=== PATIENT | male | born 1950 | race Caucasian/White ===

== ENCOUNTER 2021-07-07 12:41 | Emergency (ER) | payer OTHER ==
--- OUTSIDE RECORDS SUMMARY | 2021-07-07 12:42 | XMS REPORT | Continuity of Care Document ---
:1950 Author Organization [facility] t Address [address] [place] [address] Care Team Providers Name Role Phone Asked, Pcp Primary Care Physician Unavailable Brian Attending Clinician [phone] David Ortiz MD Attending Clinician Telma STANTON Attending Clinician Problems This patient has no known problems. Allergies, Adverse Reactions, Alerts This patient has no known allergies or adverse reactions. Social History Social Habit Start Date Stop Date Quantity Comments Source Sex Ass[birth year] At [birth year] [facility] 00:00:00 00:00:00 Smoking Status Start Date Stop Date Source Unknown if ever smoked [facility] Medications This patient has no known medications. Procedures Procedure Date / Time Performed Performing Clinician [facility] e US VASCULAR SCREENING 2021-03-19 21:19:53 [facility] HEART SCAN PLUS CT HEART SCAN PLUS W 2021-03-19 20:17:13 [facility] PHYSICIAN ORDER Plan of Care Planned Activity Planned Date Details Comments Source Future Scheduled Test COVID-19 VACCINE (1) [facility] [code = COVID-19 VACCINE (1)] Future Scheduled Test Hepatitis C screening [facility] (procedure) [code = 372687990] Future Scheduled Test COLONOSCOPY SCREENING [facility] [code = COLONOSCOPY SCREENING] Future Scheduled Test SHINGLES VACCINES (#1) [facility] [code = SHINGLES VACCINES (#1)] Future Scheduled Test INFLUENZA VACCINE [code [facility] = INFLUENZA VACCINE] Encounters Start End Encounter Admission Attending Care Care Encounter Source Date/Time Date/Time Type Type Clinicians Facility Department ID 2021-06-20 2021-06-20 Outpatient Brian Darius Darius [id number] 00:00:00 00:00:00 Ad [id number] 2021-04-18 2021-04-18 Office LOIDA Ortiz [id number] 08:56:14 11:30:55 Visit Ramón Hernandez AMBULATOR 350.1.13.21 Y 0.2.7.2.686 [id number] 2021-03-19 2021-03-19 [facility], 1.2.840.1 [id number] Methodi 14:56:39 23:59:00 Encounter Andrea [id number] 3.430.2.7 Hospit a .3.781677 l .8 2021-03-19 2021-03-19 [facility], 1.2.840.1 [id number] Methodi 14:55:55 14:55:55 Encounter Andrea [id number] 3.430.2.7 Hospit a .3.911465 l .8 2021-03-19 2021-03-19 Travel 1.2.840.1 [id number] Methodi 00:00:00 00:00:[id number] 3.430.2.7 0.2.7.3.698 Ho spita .3.339326 084.8 l .8 2021-03-19 2021-03-19 Outpatient [facility] [id number] [address] [place] [address] 00:00:00 00:00:00 ANDREA [address] 2021-03-19 2021-03-19 Outpatient [facility] [id number] [address] [place] [address] 00:00:00 00:00:00 ANDREA [address] 2021-02-25 2021-02-25 Travel 1.2.840.1 [id number] Methodi 00:00:00 00:00:[address] 3.430.2.7 0.2.7.3.698 Ho spita .3.177293 084.8 l .8 2021-02-13 2021-02-13 Transcribe Telma 1.2.840.1 [id number] Methodi 00:00:00 00:00:00 Orders Andrea [id number] 3.430.2.7 Hospit a .3.942765 l .8 2019-07-13 2019-07-13 Office LOIDA Ortiz [id number] 13:49:11 16:45:49 Visit Morris AMBULATOR 350.1.13.21 Y 0.2.7.2.686 [id number] Results Test Description Test Time Test Comments Results Result Sourc e Comments Pv vascular 2021-02-22 Examination: US Methodis t screening heart 7 VASCULAR SCREENING H ospital scan plus (self 21:42:07 HEART SCAN PLUS pay) Clinical history: E78.5 Hyperlipidemia unspecified, e78.5 Impression:Vascular screening sonography was performed. Doppler arterial waveform analysis was performed. 1. There is no significant plaque within visualized portions of either common or internal carotid artery. 2. The abdominal aorta is normal caliber without significant plaque formation. 3. Bilateral ABIs were obtained:Right brachial pressure 143 mm, ankle pressure 172 mm, index 1.20; first toe pressure 159 mm, index 1.11Left brachial pressure 139 mm, index 159 mm, index 1.11; great toe pressure 128 mm, index 0.90Waveforms at the ankle are primarily biphasic. [id number] Interface, Radiology Results Incoming - 03/19/2021 4:45 PM CDT Examination : US VASCULAR SCREENING HEART SCAN PLUSClinical history: E78.5 Hyperlipidemia unspecified, e78.5Impression:Vasc ular screening sonography was performed. Doppler arterial waveform analysis was performed.1. There is no significant plaque within visualized portions of either common or internal carotid artery.2. The abdominal aorta is normal caliber without significant plaque formation.3. Bilateral ABIs were obtained:Right brachial pressure 143 mm, ankle pressure 172 mm, index 1.20; first toe pressure 159 mm, index 1.11Left brachial pressure 139 mm, index 159 mm, index 1.11; great toe pressure 128 mm, index 0.90Waveforms at the ankle are primarily biphasic.[id number] Ct heart scan 2021-02-22 EXAMINATION: CT Meth[facility] dist plus w physician 7 HEART SCAN PLUS W H ospital order (self pay) 20:22:23 PHYSICIAN ORDER CLINICAL HISTORY: E78.5 Hyperlipidemia unspecified, e78.5 COMPARISON: None. CT imaging was performed with iterative reconstruction techniques and/or automated exposure control to reduce radiation dose. IMPRESSION:Sequentia l 2.[address] cuts were obtained through the chest using ECG gating. Interactive image viewing and volumetric display and analysis were also performed. The CAC score was quantified using the Agatston scoring method. Agatston total coronary artery calcium score: 902Left Main (LM): 0Left Anterior Descending (LAD): 397Left Circumflex (LCx): 0Right Coronary Artery (RCA): 319Posterior Descending Artery (PDA): 0Diagonal: 123Ramus: 63 Agatston Calcium Score (total) Extent of Atherosclerosis0-Nor mal 1-10 - Minimal extent of oroogoznlhuwqtp55-76 0 - Mild extent of euypjdqbnzbcoyx698-2 00 - Moderate extent of atherosclerosis> 400 - Severe extent of atherosclerosis RECOMMENDATION:A score of 902 places the patient in the 70th percentile rank. That means 30% of the males at the ages from 71-75 have a higher calcium score. Intensive risk factor modification is indicated to prevent further progression (>0). Please contact your physician regarding these results. INCIDENTAL FINDINGS:The ascending thoracic aorta is aneurysmal at 4.4 cm in greatest diameter. However, this is incompletely evaluated on this exam. Consider additional imaging with chest CTA for further evaluation. [facility]-[id number] Interface, Radiology Results - 03/19/2021 3:25 PM CDT EXAMINATION : CT HEART SCAN PLUS W PHYSICIAN ORDERCLINICAL HISTORY: E78.5 Hyperlipidemia unspecified, e78.5COMPARISON: None.CT imaging was performed with iterative reconstruction techniques and/or automated exposure control to reduce radiation dose.IMPRESSION:Sequ ential 2.[address] cuts were obtained through the chest using ECG gating. Interactive image viewing and volumetric display and analysis were also performed. The CAC score was quantified using the Agatston scoring method.Agatston total coronary artery calcium score: 902Left Main (LM): 0Left Anterior Descending (LAD): 397Left Circumflex (LCx): 0Right Coronary Artery (RCA): 319Posterior Descending Artery (PDA): 0Diagonal: 123Ramus: 63Agatston Calcium Score (total) Extent of Atherosclerosis0-Nor mal 1-10 - Minimal extent of nfyaokgageqogcy17-75 0 - Mild extent of jevqravctwwtxna426-4 00 - Moderate extent of atherosclerosis> 400 - Severe extent of atherosclerosisRECOM MENDATION:A score of 902 places the patient in the 70th percentile rank. That means 30% of the males at the ages from 71-75 have a higher calcium score. Intensive risk factor modification is indicated to prevent further progression (>0). Please contact your physician regarding these results.INCIDENTAL FINDINGS:The ascending thoracic aorta is aneurysmal at 4.4 cm in greatest diameter. However, this is incompletely evaluated on this exam. Consider additional imaging with chest CTA for further evaluation.[id number]
[2021-07-07 13:07] LABS: Absolute Lymphocytes (CBC) 1.3 K/uL (0.7-4.9); Basophils % 0.2 % (0-1.3); Hematocrit 34.4 % (39.6-49.0); Lymphocytes % 20.6 % (15.3-44.8); MPV 6.8 fL (7.6-11.3); RBC Red Blood Cell Count 3.03 M/uL (4.33-5.43)
[2021-07-07 13:09] LABS: Protime INR 1.03
--- NOTE | 2021-07-07 13:13 | RAD REPORT ---
EXAM DESCRIPTION: CT - Ct Stroke Brain Wo Cont - 07/07/2021 1:04 pm CLINICAL HISTORY: NUMBNESS COMPARISON: No comparisons TECHNIQUE: All CT scans are performed using dose optimization technique as appropriate and may inclu de automated exposure control or mA/KV adjustment according to patient size. FINDINGS: No intracranial hemorrhage, hydrocephalus or extra-axial fluid collection.No areas of brai n edema or evidence of midline shift. Mild chronic small vessel ischemic changes. Cerebral atrophy. The paranasal sinuses and mastoids are clear. The calvarium is intact. IMPRESSION: No acute intracranial abnormality.
[2021-07-07 13:29] LABS: Potassium 4.1 mmol/L (3.5-5.1)
[2021-07-07] MEDS ORDERED: NA CHLORIDE 0.9% 1,000 ML ONE (15:14)
--- NOTE | 2021-07-07 16:01 | EDPHYS ---
Physician Documentation [facility] Name: Herminio Crowley Age: 70 yrs Sex: Male : 1950 Arrival Date: 07/07/2021 Time: 12:44 Bed 3 Private MD: ED Physician Arpit Medina HPI: 07/07 16:05 This 70 yrs old Male presents to ER via EMS with complaints of Numbness. tw4 16:05 The patient's problem is reported as paresthesias, in left side of face, perioral left tw4 cheek, left fingers. Onset: The symptoms/episode began/occurred just prior to arrival, today. Duration: This was a single incident. Context: occurred. Severity of symptoms: At their worst the symptoms were moderate in the emergency department the symptoms are unchanged. The patient has not experienced similar symptoms in the past. 16:09 70-year-old male comes emergency department after calling EMS because he had perioral tw4 numbness, left cheek numbness left hand numbness. When EMS arrived they found patient to be hypotensive blood pressure of 70 over 40s and his heart rate to be less than 40. Patient had a complaints of chest pain patient no complaints of weakness. Patient states prior to calling EMS he was running today and then he went into the hot tub for undetermined amount of time. EMS gave the patient atropine and his heart rate improved. They also gave the patient IV fluids and blood pressure became normotensive. Patient states that his symptoms totally resolved by the time he arrived to the emergency department. And he had no complaints.. Historical: - Allergies: 12:49 No Known Allergies; jd3 - Home Meds: 12:49 Tegretol Oral [Active]; jd3 - PMHx: 12:49 Seizure; jd3 - PSHx: 12:49 left shoulder; jd3 - Immunization history:: Adult Immunizations up to date, Client reports receiving the 2nd dose of the Covid vaccine, Date received: January 22, 2021 Client reports receiving the 1st dose of the Covid vaccine, December 25, 2020. - Social history:: Smoking status: Patient denies any tobacco usage or history of. ROS: 16:05 Constitutional: Negative for fever, chills, and weight loss, Eyes: Negative for injury, tw4 pain, redness, and discharge, Cardiovascular: Negative for chest pain, palpitations, and edema, Respiratory: Negative for shortness of breath, cough, wheezing, and pleuritic chest pain, Abdomen/GI: Negative for abdominal pain, nausea, vomiting, diarrhea, and constipation, Back: Negative for injury and pain, MS/Extremity: Negative for injury and deformity, Skin: Negative for injury, rash, and discoloration. 16:05 Neuro: Positive for numbness, tingling. Exam: 16:05 Radiologist reports: no acute changes tw4 16:05 Constitutional: This is a well developed, well nourished patient who is awake, alert, and in no acute distress. Head/Face: Normocephalic, atraumatic. Chest/axilla: Normal chest wall appearance and motion. Nontender with no deformity. No lesions are appreciated. Cardiovascular: Regular rate and rhythm with a normal S1 and S2. No gallops, murmurs, or rubs. Normal PMI, no JVD. No pulse deficits. Respiratory: Lungs have equal breath sounds bilaterally, clear to auscultation and percussion. No rales, rhonchi or wheezes noted. No increased work of breathing, no retractions or nasal flaring. Abdomen/GI: Soft, non-tender, with normal bowel sounds. No distension or tympany. No guarding or rebound. No evidence of tenderness throughout. Back: No spinal tenderness. No costovertebral tenderness. Full range of motion. Skin: Warm, dry with normal turgor. Normal color with no rashes, no lesions, and no evidence of cellulitis. MS/ Extremity: Pulses equal, no cyanosis. Neurovascular intact. Full, normal range of motion. Neuro: Awake and alert, GCS 15, oriented to person, place, time, and situation. Cranial nerves II-XII grossly intact. Motor strength 5/5 in all extremities. Sensory grossly intact. Cerebellar exam normal. Normal gait. Vital Signs: 12:50 BP 169 / 73; Pulse 51; Resp 15 S; Temp 97.6(TE); Pulse Ox 95% on R/A; Weight 69.85 kg jd3 (R); Height 6 ft. 0 in. (182.88 cm) (R); Pain 0/10; 13:12 BP 156 / 77; Pulse 49; Resp 15; Pulse Ox 100% on R/A; hb 14:41 BP 164 / 74; Pulse 47; Resp 16 S; Pulse Ox 100% on R/A; jd3 15:43 BP 177 / 76; Pulse 58; Resp 14; Pulse Ox 100% on R/A; hb 12:50 Body Mass Index 20.89 (69.85 kg, 182.88 cm) jd3 NIH Stroke Scale Scores: 12:52 NIHSS Score: 0 jd3 16:05 NIHSS Score: 0 tw4 MDM: 12:47 Patient medically screened. tw4 16:09 Data reviewed: vital signs, nurses notes. Data interpreted: Pulse oximetry: tw4 Interpretation: normal. Counseling: I had a detailed discussion with the patient and/or guardian regarding: the historical points, exam findings, and any diagnostic results supporting the discharge/admit diagnosis. Special discussion: I discussed with the patient/guardian in detail that at this point there is no indication for admission to the hospital. It is understood, however, that if the symptoms persist or worsen the patient needs to return immediately for re-evaluation. 07/07 12:48 Order name: Basic Metabolic Panel; Complete Time: 13:54 tw4 07/07 13:55 Interpretation: Normal except: GFR 74; GLUC 114. tw07/07 12:48 Order name: CBC with Diff 07/07 13:54 Interpretation: Normal except: RBC 3.03; HGB 12.1; HCT 34.4; MCV 113.6; MCH 40.1; MPV tw4 6.8. 07/07 12:48 Order name: Protime (+inr); Complete Time: 13:54 tw4 07/07 13:54 Interpretation: Within normal limits: PT 11.8; INR <p>1.03</p>. tw4 07/07 12:48 Order name: Ptt, Activated; Complete Time: 13:54 tw4 07/07 13:54 Interpretation: Normal except: PTT 22.8. tw07/07 12:48 Order name: CT Stroke Brain w/o Contrast; Complete Time: 13:54 tw4 07/07 13:54 Interpretation: No acute disease except. 07/07 12:48 Order name: EKG; Complete Time: 12:48 tw4 07/07 12:48 Order name: Accucheck; Complete Time: 12:53 tw4 07/07 12:48 Order name: Cardiac monitoring; Complete Time: 12:53 4 07/07 12:48 Order name: EKG - Nurse/Tech; Complete Time: 12:53 07/07 12:48 Order name: IV Saline Lock; Complete Time: 12:53 07/07 12:48 Order name: Labs collected and sent; Complete Time: 12:53 07/07 12:48 Order name: NPO; Complete Time: 12:53 07/07 12:48 Order name: O2 Per Protocol; Complete Time: 12:53 07/07 12:48 Order name: O2 Sat Monitoring; Complete Time: 12:53 07/07 12:48 Order name: Stroke Swallow Screen; Complete Time: 12:53 tw4 Administered Medications: 14:51 Drug: NS 0.9% 1000 ml Route: IV; Rate: 1 bolus; Site: right antecubital; hb 15:50 Follow up: Response: No adverse reaction; IV Status: Completed infusion; IV Intake: jd3 1000ml Disposition Summary: 07/07/21 16:01 Discharge Ordered Location: Home tw4 Problem: new tw4 Symptoms: have improved tw4 Condition: Stable tw4 Diagnosis - Hypotension, unspecified tw4 - Heat exhaustion, unspecified tw4 Followup: tw4 - With: Private Physician - When: Upon discharge from the Emergency Department - Reason: Recheck today's complaints, Continuance of care, Re-evaluation by your physician Discharge Instructions: - Discharge Summary Sheet tw4 - Hypotension tw4 - Near-Syncope tw4 Forms: - Medication Reconciliation Form tw4 - Thank You Letter tw4 - Antibiotic Education tw4 - Prescription Opioid Use tw4 NIH Stroke Scale - NIH Stroke Score Date: 07/07/2021 Time: 12:52 Total Score = 0 1a. Level of Consciousness (LOC) - 0(Alert) 1b. Level of Consciousness (LOC) (Month \T\ Age) - 0(Both) 1c. LOC Commands (Open \T\ Closes Eyes/Digital Ad Trafficker) - 0(Both) 2. Best Gaze (Lateral Gaze Paresis) - 0(Normal) 3. Visual Field Loss - 0(No visual loss) 4. Facial Palsy - 0(Normal) 5a. Left Arm: Motor (10-second hold) - 0(No drift) 5b. Right Arm: Motor (10-second hold) - 0(No drift) 6a. Left Leg: Motor (5-second hold - always test supine) - 0(No drift) 6b. Right Leg: Motor (5-second hold - always test supine) - 0(No drift) 7. Limb Ataxia (finger/nose \T\ heel/soler - test with eyes open) - 0(Absent) 8. Sensory Loss (pinprick arms/legs/face) - 0(Normal) 9. Best Language: Aphasia (description/naming/reading) - 0(No aphasia) 10. Dysarthria (speech clarity - read or repeat words) - 0(Normal) 11. Extinction and Inattention (visual/tactile/auditory/spatial/personal) - 0(No abnormality) Initials: kellie NIH Stroke Scale - NIH Stroke Score Date: 07/07/2021 Time: 16:05 Total Score = 0 1a. Level of Consciousness (LOC) - 0(Alert) 1b. Level of Consciousness (LOC) (Month \T\ Age) - 0(Both) 1c. LOC Commands (Open \T\ Closes Eyes/Digital Ad Trafficker) - 0(Both) 2. Best Gaze (Lateral Gaze Paresis) - 0(Normal) 3. Visual Field Loss - 0(No visual loss) 4. Facial Palsy - 0(Normal) 5a. Left Arm: Motor (10-second hold) - 0(No drift) 5b. Right Arm: Motor (10-second hold) - 0(No drift) 6a. Left Leg: Motor (5-second hold - always test supine) - 0(No drift) 6b. Right Leg: Motor (5-second hold - always test supine) - 0(No drift) 7. Limb Ataxia (finger/nose \T\ heel/soler - test with eyes open) - 0(Absent) 8. Sensory Loss (pinprick arms/legs/face) - 0(Normal) 9. Best Language: Aphasia (description/naming/reading) - 0(No aphasia) 10. Dysarthria (speech clarity - read or repeat words) - 0(Normal) 11. Extinction and Inattention (visual/tactile/auditory/spatial/personal) - 0(No abnormality) Initials: tw4 Signatures: Dispatcher [employer] EDSerena Sandoval RN RN hb Davies, Jonathon, RN RN jd3 Wadley, Terrence, MD MD tw4 Corrections: (The following items were deleted from the chart) 13:55 13:54 Normal except: GFR 74. tw4 tw4
--- NOTE | 2021-07-07 16:01 | ER ---
Nurse's Notes [facility] Name: Herminio Crowley Age: 70 yrs Sex: Male : 1950 Arrival Date: 07/07/2021 Time: 12:44 Bed 3 Private MD: Diagnosis: Hypotension, unspecified;Heat exhaustion, unspecified Presentation: 07/07 12:45 Chief complaint: EMS states: "pt reported that he went for a run this am then got in jd3 the hot tub. he reported that at 1140 he started to have numbness on his left side of his lips that spread to his face. on our arrival his heart rate was at 32 bpm in sinus bradycardia. we started an 18 G IV to the right AC and gave 1000 ml of NS and 0.5 of Atropine. the pt started to reported feeling better and heart rate came up to 50 bpm which the pt stated was his normal. symptoms resolved in route to the hospital.". Coronavirus screen: At this time, the client does not indicate any symptoms associated with coronavirus-19. Ebola Screen: Patient negative for fever greater than or equal to 101.5 degrees Fahrenheit, and additional compatible Ebola Virus Disease symptoms. Initial Sepsis Screen: Does the patient meet any 2 criteria? No. Patient's initial sepsis screen is negative. Does the patient have a suspected source of infection? No. Patient's initial sepsis screen is negative. Risk Assessment: Do you want to hurt yourself or someone else? Patient reports no desire to harm self or others. Onset of symptoms was July 07, 2021. 12:45 Method Of Arrival: EMS: [facility] jd3 12:45 Acuity: VIANNEY 3 jd3 Historical: - Allergies: 12:49 No Known Allergies; jd3 - Home Meds: 12:49 Tegretol Oral [Active]; jd3 - PMHx: 12:49 Seizure; jd3 - PSHx: 12:49 left shoulder; jd3 - Immunization history:: Adult Immunizations up to date, Client reports receiving the 2nd dose of the Covid vaccine, Date received: January 22, 2021 Client reports receiving the 1st dose of the Covid vaccine, December 25, 2020. - Social history:: Smoking status: Patient denies any tobacco usage or history of. Screenin:52 Abuse screen: Denies threats or abuse. Nutritional screening: No deficits noted. jd3 Tuberculosis screening: No symptoms or risk factors identified. VAN Screening: Arm Drift: Patient shows no arm weakness. Patient is VAN negative. The patient has not been NPO before screening. The patient is currently on the following diet: regular The patient is alert, able to follow commands. The patient does not exhibit slurred or garbled speech The patient is not exhibiting difficulty speaking. The patient does not exhibit difficulty understanding words. The patient is able to swallow own secretions with no drooling or need for suction. Patient tolerated one teaspoon of water. No drooling, immediate coughing, gurgling, or clearing of the throat was noted. The patient tolerated 90mL of water. No drooling, immediate coughing, gurgling, or clearing of the throat was noted. The patient passed the bedside swallow screening. Oral medications may be given as ordered. Contact Physician for further diet orders. Provider notified of bedside swallow screening results: Arpit Medina MD. Fall Risk Ambulatory Aid- None/Bed Rest/Nurse Assist (0 pts). Gait- Normal/Bed Rest/Wheelchair (0 pts) Mental Status- Oriented to own ability (0 pts). Total Puckett Fall Scale indicates No Risk (0-24 pts). Assessment: 12:51 General: Appears in no apparent distress. comfortable, Behavior is calm, cooperative, jd3 appropriate for age. Pain: Denies pain. Neuro: Level of Consciousness is awake, alert, obeys commands, Oriented to person, place, time, situation, Reports symptoms resolved. left sided lip numbness prior to arrival. Denies weakness blurred vision dizziness, paresthesias numbness headache photophobia. Cardiovascular: Denies chest pain, Capillary refill < 3 seconds Patient's skin is warm and dry. Rhythm is sinus bradycardia. Respiratory: Airway is patent Respiratory effort is even, unlabored, Respiratory pattern is regular, symmetrical, Denies cough, shortness of breath. GI: No signs and/or symptoms were reported involving the gastrointestinal system. : No signs and/or symptoms were reported regarding the genitourinary system. EENT: No signs and/or symptoms were reported regarding the EENT system. Derm: Skin is intact, Skin is dry, Skin is normal, Skin temperature is warm. Musculoskeletal: Circulation, motion, and sensation intact. Range of motion: intact in all extremities. 13:33 Reassessment: Patient appears in no apparent distress at this time. Patient and/or hb family updated on plan of care and expected duration. Pain level reassessed. Patient is alert, oriented x 3, equal unlabored respirations, skin warm/dry/pink. 14:41 Reassessment: Patient appears in no apparent distress at this time. No changes from jd3 previously documented assessment. Patient and/or family updated on plan of care and expected duration. Pain level reassessed. Patient is alert, oriented x 3, equal unlabored respirations, skin warm/dry/pink. Patient denies pain at this time. Vital Signs: 12:50 BP 169 / 73; Pulse 51; Resp 15 S; Temp 97.6(TE); Pulse Ox 95% on R/A; Weight 69.85 kg jd3 (R); Height 6 ft. 0 in. (182.88 cm) (R); Pain 0/10; 13:12 BP 156 / 77; Pulse 49; Resp 15; Pulse Ox 100% on R/A; hb 14:41 BP 164 / 74; Pulse 47; Resp 16 S; Pulse Ox 100% on R/A; jd3 15:43 BP 177 / 76; Pulse 58; Resp 14; Pulse Ox 100% on R/A; hb 12:50 Body Mass Index 20.89 (69.85 kg, 182.88 cm) jd3 NIH Stroke Scale Scores: 12:52 NIHSS Score: 0 jd3 16:05 NIHSS Score: 0 tw4 ED Course: 12:44 Patient arrived in ED. jd3 12:44 Cipriano Burk RN is Primary Nurse. jd3 12:47 Arpit Medina MD is Attending Physician. tw4 12:49 Triage completed. jd3 12:50 Arm band placed on. EKG completed in triage. Results shown to MD. jd3 12:53 Patient has correct armband on for positive identification. Placed in gown. Bed in low jd3 position. Call light in reach. Side rails up X2. quality assurance monitor final on. Pulse ox on. NIBP on. 13:03 CT Stroke Brain w/o Contrast In Process Unspecified. EDMS 15:00 Maintain EMS IV. Dressing intact. Good blood return noted. Site clean \\T\\ dry. Gauge \\T\\ stanislaw 3 site: 18 G right AC. 16:15 No provider procedures requiring assistance completed. IV discontinued, intact, jd3 bleeding controlled, No redness/swelling at site. Pressure dressing applied. Administered Medications: 14:51 Drug: NS 0.9% 1000 ml Route: IV; Rate: 1 bolus; Site: right antecubital; hb 15:50 Follow up: Response: No adverse reaction; IV Status: Completed infusion; IV Intake: jd3 1000ml Intake: 15:50 IV: 1000ml; Total: 1000ml. jd3 Outcome: 16:01 Discharge ordered by . tw4 16:15 Discharged to home ambulatory, with family. jd3 16:15 Condition: stable 16:15 Discharge instructions given to patient, Instructed on discharge instructions, follow up and referral plans. Demonstrated understanding of instructions, follow-up care. 16:22 Patient left the ED. NIH Stroke Scale - NIH Stroke Score Date: 07/07/2021 Time: 12:52 Total Score = 0 1a. Level of Consciousness (LOC) - 0(Alert) 1b. Level of Consciousness (LOC) (Month \\T\\ Age) - 0(Both) 1c. LOC Commands (Open \\T\\ Closes Eyes/Strategic Partner Development Manager) - 0(Both) 2. Best Gaze (Lateral Gaze Paresis) - 0(Normal) 3. Visual Field Loss - 0(No visual loss) 4. Facial Palsy - 0(Normal) 5a. Left Arm: Motor (10-second hold) - 0(No drift) 5b. Right Arm: Motor (10-second hold) - 0(No drift) 6a. Left Leg: Motor (5-second hold - always test supine) - 0(No drift) 6b. Right Leg: Motor (5-second hold - always test supine) - 0(No drift) 7. Limb Ataxia (finger/nose \\T\\ heel/soler - test with eyes open) - 0(Absent) 8. Sensory Loss (pinprick arms/legs/face) - 0(Normal) 9. Best Language: Aphasia (description/naming/reading) - 0(No aphasia) 10. Dysarthria (speech clarity - read or repeat words) - 0(Normal) 11. Extinction and Inattention (visual/tactile/auditory/spatial/personal) - 0(No abnormality) Initials: jd3 NIH Stroke Scale - NIH Stroke Score Date: 07/07/2021 Time: 16:05 Total Score = 0 1a. Level of Consciousness (LOC) - 0(Alert) 1b. Level of Consciousness (LOC) (Month \\T\\ Age) - 0(Both) 1c. LOC Commands (Open \\T\\ Closes Eyes/Strategic Partner Development Manager) - 0(Both) 2. Best Gaze (Lateral Gaze Paresis) - 0(Normal) 3. Visual Field Loss - 0(No visual loss) 4. Facial Palsy - 0(Normal) 5a. Left Arm: Motor (10-second hold) - 0(No drift) 5b. Right Arm: Motor (10-second hold) - 0(No drift) 6a. Left Leg: Motor (5-second hold - always test supine) - 0(No drift) 6b. Right Leg: Motor (5-second hold - always test supine) - 0(No drift) 7. Limb Ataxia (finger/nose \\T\\ heel/soler - test with eyes open) - 0(Absent) 8. Sensory Loss (pinprick arms/legs/face) - 0(Normal) 9. Best Language: Aphasia (description/naming/reading) - 0(No aphasia) 10. Dysarthria (speech clarity - read or repeat words) - 0(Normal) 11. Extinction and Inattention (visual/tactile/auditory/spatial/personal) - 0(No abnormality) Initials: tw4 Signatures: Dispatcher [employer] EDAnn Wall RN Serena Baron RN Cipriano Chi RN RN jd3 Wadley, Terrence, MD MD tw4 Corrections: (The following items were deleted from the chart) 16:31 15:00 Missed attempt(s): 18 gauge in right antecubital area. Bleeding jd3 controlled, band aid applied, catheter tip intact. jd3
[2021-07-07 16:27] VITALS: TEMP 97.6
[2021-07-07 16:28] VITALS: O2SAT 100
[2021-07-07 16:31] VITALS: BP 177/76
[2021-07-07 16:38] LABS: Blood Morphology Comment NOTED (NOT SEEN); Macrocytosis SLIGHT; Platelet Estimate ADEQ; White Blood Cell Scan OK (OK)
== END 2021-07-07 16:22 | disposition home or self-care (01) ==
LOC: ER 12:41
DX: T67.5XXA Heat exhaustion, unspecified, initial encounter (principal); G40.909 Epilepsy, unspecified, not intractable, without status epilepticus
CPT/HCPCS: 93005; 85025; 80048; 36415; 85610; 85730; 70450; 96360; 99284; J7030

== ENCOUNTER 2021-07-15 04:17 | Emergency (ER) | payer OTHER ==
--- OUTSIDE RECORDS SUMMARY | 2021-07-15 04:20 | XMS REPORT | Continuity of Care Document ---
:1950 Author Organization [facility] t Address [address] [place] [address] Care Team Providers Name Role Phone Asked, Pcp Primary Care Physician Unavailable Brian Attending Clinician [phone] David Ortiz MD Attending Clinician Telma STANTON Attending Clinician Problems This patient has no known problems. Allergies, Adverse Reactions, Alerts This patient has no known allergies or adverse reactions. Social History Social Habit Start Date Stop Date Quantity Comments Source Sex Assigned At [birth year] [facility] 00:00:00 00:00:00 Smoking Status Start Date Stop Date Source Unknown if ever smoked [facility] Medications This patient has no known medications. Procedures Procedure Date / Time Performed Performing Clinician [facility] e US VASCULAR SCREENING 2021-03-19 21:19:53 [facility] HEART SCAN PLUS CT HEART SCAN PLUS W 2021-03-19 20:17:13 [facility] PHYSICIAN ORDER Plan of Care Planned Activity Planned Date Details Comments Source Future Scheduled Test COVID-19 VACCINE (1) [facility] [code = COVID-19 VACCINE (1)] Future Scheduled Test Hepatitis C screening [facility] (procedure) [code = 444776930] Future Scheduled Test COLONOSCOPY SCREENING [facility] [code = COLONOSCOPY SCREENING] Future Scheduled Test SHINGLES VACCINES (#1) [facility] [code = SHINGLES VACCINES (#1)] Future Scheduled Test INFLUENZA VACCINE [code [facility] = INFLUENZA VACCINE] Future Scheduled Test COVID-19 VACCINE (1) [facility] [code = COVID-19 VACCINE (1)] Future Scheduled Test Hepatitis C screening [facility] (procedure) [code = 452910353] Future Scheduled Test COLONOSCOPY SCREENING [facility] [code = COLONOSCOPY SCREENING] Future Scheduled Test SHINGLES VACCINES (#1) [facility] [code = SHINGLES VACCINES (#1)] Future Scheduled Test INFLUENZA VACCINE [code [facility] = INFLUENZA VACCINE] Encounters Start End Encounter Admission Attending Care Care Encounter Source Date/Time Date/Time Type Type Clinicians Facility Department ID 2021-06-20 2021-06-20 Outpatient Brian Darius [facility] [id number] 00:00:00 00:00:00 Ad [id number] 2021-04-18 2021-04-18 Office LOIDA Ortiz [id number] 08:56:14 11:30:55 Visit Ramón Hernandez AMBULATOR 350.1.13.21 Y 0.2.7.2.686 [id number] 2021-03-19 2021-03-19 [place] [address].2.840.1 [id number] Methodi 14:56:39 23:59:00 Encounter Andrea 40000.1.[address] 3.430.2.7 Hospit a .3.044690 l .8 2021-03-19 2021-03-19 [place] [address].2.840.1 [id number] Methodi 14:56:39 23:59:00 Encounter Andrea [address]405.1.[address] 3.430.2.7 Hospit a .3.948272 l .8 2021-03-19 2021-03-19 [place] [address].2.840.1 [id number] Methodi 14:55:55 14:55:55 Encounter Andrea 47948.1.[address] 3.430.2.7 Hospit a .3.637392 l .8 2021-03-19 2021-03-[address]840[address]1 [id number] Methodi 14:55:55 14:55:55 Encounter Andrea [address]17.1.[address] 3.430.2.7 Hospit a .3.686062 l .8 2021-03-19 2021-03-19 Travel 1.2.840.1 [id number] [id number] Methodi 00:00:00 00:00:[address] 3.430.2.7 0.2.7.3.698 Ho spita .3.786168 084.8 l .8 2021-03-19 2021-03-19 Travel 1.2.840.1 1.2.771.645 [id number] Methodi 00:00:00 00:00:[address] 3.430.2.7 0.2.7.3.698 Ho spita .3.145891 084.8 l .8 2021-02-25 2021-02-25 Travel 1.2.840.1 1.2.301.567 [id number] [id number] Methodi 00:00:00 00:00:[address] 3.430.2.7 0.2.7.3.698 Ho spita .3.076612 084.8 l .8 2021-02-25 2021-02-25 Travel 1.2.840.1 1.2.575.045 [id number] Methodi 00:00:00 00:00:[address] 3.430.2.7 0.2.7.3.698 Ho spita .3.993735 084.8 l .8 2021-02-13 2021-02-13 Transcribe Telma, 1.2.840.1 [id number] Methodi 00:00:00 00:00:00 Orders Andrea [address]16.1.[address] 3.430.2.7 Hospit a .3.508495 l .8 2021-02-13 2021-02-13 Transcribe Telma, 1.2.840.1 [id number] Methodi 00:00:00 00:00:00 Orders Andrea [address]286.1.[address] 3.430.2.7 [facility] a 3.865241 l .8 2019-07-13 2019-07-13 Office LOIDA Ortiz [id number] [id number] 13:49:11 16:45:49 Visit Ramón Hernandez AMBULATOR 350.1.13.21 Y 0.2.7.2.686 [id number] Results Test Description Test Time Test Comments Results Result Sourc e Comments vascular 2021-02-22 Examination: US Methodis t screening [...] 0.90Waveforms at the ankle are primarily biphasic. [id number] Interface, Radiology Results - 03/19/2021 4:45 PM CDT Examination : [...] index 0.90Waveforms at the ankle are primarily biphasic.[id number] Pv vascular 2021-02-22 Examination: US Methodis t [...] 0.90Waveforms at the ankle are primarily biphasic. [facility]-[id number] Interface, Radiology Results 03/19/2021 4:45 PM CDT Examination : US [...] index 0.90Waveforms at the ankle are primarily biphasic.[facility]-[id number] Ct heart scan 2021-02-22 EXAMINATION: CT [...] Atherosclerosis0-Nor mal 1-10 - Minimal extent of rifcoehsgosngkc56-25 0 - Mild extent of pmpdznqctatnwyu632-6 00 - Moderate extent of atherosclerosis> 400 [...] imaging with chest CTA for further evaluation. [facility]-[id number] Interface, Radiology Results Incoming - 03/19/2021 3:25 PM CDT EXAMINATION : [...] (RCA): 319Posterior Descending Artery (PDA): 0Diagonal: 123Ramus: 63[facility] (total) Extent of Atherosclerosis0-Nor mal 1-10 - Minimal extent of dhoegcxacacdxow16-84 0 - Mild extent of reiysennnftymnj823-2 00 - Moderate extent of atherosclerosis> 400 [...] additional imaging with chest CTA for further evaluation.[facility]-[id number] Ct heart scan 2021-02-22 EXAMINATION: CT Metho [...] Atherosclerosis0-Nor mal 1-10 - Minimal extent of kyfeixxoiljeslm25-41 0 - Mild extent of bsbatvhlnchnwao365-3 00 - Moderate extent of atherosclerosis> 400 [...] imaging with chest CTA for further evaluation. [facility]-[id number] Interface, Radiology Results - 03/19/2021 3:25 PM [...] Atherosclerosis0-Nor mal 1-10 - Minimal extent of dpmmzdbepqnkpqo19-90 0 - Mild extent of dqczxttzumikjql080-9 00 - Moderate extent of atherosclerosis> 400 [...] additional imaging with chest CTA for further evaluation.[facility]-MXL0 [id number]
[2021-07-15 05:17] LABS: Absolute Lymphocytes (CBC) 1.2 K/uL (0.7-4.9); Basophils % 0.3 % (0-1.3); Hematocrit 36.3 % (39.6-49.0); Lymphocytes % 21.8 % (15.3-44.8); RBC Red Blood Cell Count 3.23 M/uL (4.33-5.43)
[2021-07-15 05:25] LABS: Protime INR 0.98
[2021-07-15 05:40] LABS: ALT/SGPT 31 U/L (12-78); AST/SGOT 25 U/L (15-37); Albumin 4.1 g/dL (3.4-5.0); Alkaline Phosphatase 68 U/L (45-117); BUN Blood Urea Nitrogen 11 mg/dL (7-18); Bicarbonate 29 mmol/L (21-32); Bilirubin Direct 0.2 mg/dL (0-0.2); Bilirubin Total 0.7 mg/dL (0.2-1.0); Glucose Level 120 mg/dL (74-106); Magnesium 2.2 mg/dL (1.8-2.4); NT PRO-BNP 168 pg/mL (<125); Protein, Total 6.9 g/dL (6.4-8.2); Sodium Level 134 mmol/L (136-145); Troponin (Emerg Dept Use Only) < 0.02 ng/mL (0.0-0.045)
[2021-07-15 06:03] LABS: White Blood Cell Scan OK (OK)
[2021-07-15 06:04] LABS: Blood Morphology Comment NOTED (NOT SEEN); Macrocytosis SLIGHT; Platelet Estimate ADEQ
--- NOTE | 2021-07-15 07:14 | RAD REPORT ---
EXAM DESCRIPTION: RAD - Chest Single View - 07/15/2021 5:16 am CLINICAL HISTORY: high BP COMPARISON: CHEST PA AND LAT 2 VIEW dated 01/08/2015 FINDINGS: No evidence of edema or pneumonia. Cardiomegaly.No acute osseous abnormality. No significa nt pleural effusions or pneumothorax. IMPRESSION: No acute cardiopulmonary disease.
--- NOTE | 2021-07-15 07:56 | RAD REPORT ---
EXAM DESCRIPTION: MRI - Brain Wo Cont - 07/15/2021 7:49 am CLINICAL HISTORY: Left-sided numbness and weakness COMPARISON: Same-day head CT TECHNIQUE: Sagittal T1-weighted images were obtained along with PD/heavily T2-weighted and T2-FLAIR images. Axial DWI and ADC mapping sequences were also obtained along with coronal heavily T2-weighted images were obtained. FINDINGS: No intracranial hemorrhage, mass or acute infarction. There is no edema or shift of midlin e structures. No extra-axial fluid collections. Moderate T2/FLAIR hyperintense foci within the centru m semiovale and pierre radiata consistent with chronic small vessel ischemic changes. Signal voids ar e seen as a normal finding in the major intracranial vessels. Mastoid air cells and paranasal sinuses are clear. IMPRESSION: No acute intracranial abnormality. Specifically, no evidence of acute infarct. Moderate chronic small vessel ischemic changes.
--- NOTE | 2021-07-15 08:33 | EDPHYS ---
Physician Documentation [facility] Name: Herminio Crowley Age: 70 yrs Sex: Male : 1950 Arrival Date: 07/15/2021 Time: 04:19 Bed 14 Private MD: ED Physician Escobar Salgado HPI: 07/15 08:28 This 70 yrs old Male presents to ER via Ambulatory with complaints of High jr8 Blood Pressure, Left Side Tingling. 08:28 Onset: The symptoms/episode began/occurred gradually, 1 week(s) ago. Associated signs jr8 and symptoms: The patient has no apparent associated signs or symptoms. The patient has not experienced similar symptoms in the past. The patient has been recently seen by a physician:. 08:29 This is a 70-year-old male that presented to the emergency room for continued jr8 left-sided tingling that started about 1 week ago. Was seen here on 07 July and had blood work completed along with CT of the head. Negative findings at that time. Patient stated that he continues to have on and off numbness and tingling and sensation of weakness to the left side of his body. Noticed that his blood pressure was elevated as well. Came back to emergency room for further evaluation.. Historical: - Home Meds: 04:53 Tegretol Oral [Active]; em - PMHx: 04:53 Seizure; em - PSHx: 04:53 left shoulder; em - Immunization history:: Adult Immunizations up to date. - Social history:: Smoking status: Patient denies any tobacco usage or history of. ROS: 08:29 Eyes: Negative for injury, pain, redness, and discharge, ENT: Negative for injury, jr8 pain, and discharge, Neck: Negative for injury, pain, and swelling, Cardiovascular: Negative for chest pain, palpitations, and edema, Respiratory: Negative for shortness of breath, cough, wheezing, and pleuritic chest pain, Abdomen/GI: Negative for abdominal pain, nausea, vomiting, diarrhea, and constipation, Back: Negative for injury and pain, MS/Extremity: Negative for injury and deformity, Skin: Negative for injury, rash, and discoloration. 08:29 Neuro: Positive for numbness, weakness. Exam: 08:29 Constitutional: This is a well developed, well nourished patient who is awake, alert, jr8 and in no acute distress. Neck: Trachea midline, no thyromegaly or masses palpated, and no cervical lymphadenopathy. Supple, full range of motion without nuchal rigidity, or vertebral point tenderness. No Meningismus. Cardiovascular: Regular rate and rhythm with a normal S1 and S2. No gallops, murmurs, or rubs. Normal PMI, no JVD. No pulse deficits. Respiratory: Lungs have equal breath sounds bilaterally, clear to auscultation and percussion. No rales, rhonchi or wheezes noted. No increased work of breathing, no retractions or nasal flaring. Abdomen/GI: Soft, non-tender, with normal bowel sounds. No distension or tympany. No guarding or rebound. No evidence of tenderness throughout. Back: No spinal tenderness. No costovertebral tenderness. Full range of motion. Skin: Warm, dry with normal turgor. Normal color with no rashes, no lesions, and no evidence of cellulitis. MS/ Extremity: Pulses equal, no cyanosis. Neurovascular intact. Full, normal range of motion. Neuro: Awake and alert, GCS 15, oriented to person, place, time, and situation. Cranial nerves II-XII grossly intact. Motor strength 5/5 in all extremities. Sensory grossly intact. Cerebellar exam normal. Normal gait. Vital Signs: 04:47 BP 189 / 84; Pulse 70; Resp 18; Temp 97.8; Pulse Ox 99% ; Weight 71.67 kg; Height 6 ft. em (182.88 cm); 08:50 BP 185 / 94; Pulse 50; Resp 16; Pulse Ox 99% ; Pain 0/10; ll1 04:47 Body Mass Index 21.43 (71.67 kg, 182.88 cm) em NIH Stroke Scale Scores: 04:47 NIHSS Score: 0 ea 08:29 NIHSS Score: 0 jr8 MDM: 06:36 Patient medically screened. 8 08:29 Data reviewed: vital signs, nurses notes, lab test result(s), EKG, radiologic studies, jr CT scan, MRI, plain films. Data interpreted: Pulse oximetry: on room air is 99 %. Interpretation: normal. Counseling: I had a detailed discussion with the patient and/or guardian regarding: the historical points, exam findings, and any diagnostic results supporting the discharge/admit diagnosis, lab results, radiology results, the need for outpatient follow up, a neurologist, to return to the emergency department if symptoms worsen or persist or if there are any questions or concerns that arise at home. ED course: Patient currently on no acute findings on MRI, CT, chest x-ray, EKG, blood work. Recommended that we add Plavix at this time as he could still be having transient ischemic attacks. Needs to see neurology in the next week if possible. If he were to have continued or worsening symptoms he would need to come back for follow-up. He is to follow-up with primary care physician for his hypertension as well.. 07/15 04:56 Order name: Basic Metabolic Panel 07/15 04:56 Order name: CBC with Diff 07/15 04:56 Order name: LFT's 07/15 04:56 Order name: Magnesium 07/15 04:56 Order name: NT PRO-BNP 07/15 04:56 Order name: PT-INR 07/15 04:56 Order name: Troponin (emerg Dept Use Only) em 07/15 05:19 Order name: CBC with Automated Diff; Complete Time: 06:39 EDMS 07/15 05:29 Order name: Protime (+INR); Complete Time: 06:39 EDMS 07/15 05:40 Order name: Basic Metabolic Panel; Complete Time: 06:39 EDMS 07/15 05:40 Order name: Liver (Hepatic) Function; Complete Time: 06:39 EDMS 07/15 05:40 Order name: Troponin (Emerg Dept Use Only); Complete Time: 06:39 EDMS 07/15 05:40 Order name: NT PRO-BNP; Complete Time: 06:39 EDMS 07/15 05:40 Order name: Magnesium; Complete Time: 06:39 EDNV 07/15 04:56 Order name: XRAY Chest (1 view) 07/15 04:56 Order name: EKG; Complete Time: 04:56 07/15 04:56 Order name: EKG - Nurse/Tech; Complete Time: 05:14 07/15 04:56 Order name: IV Saline Lock; Complete Time: 05:14 07/15 04:56 Order name: Labs collected and sent; Complete Time: 05:14 07/15 04:56 Order name: O2 Per Protocol; Complete Time: 05:14 em 07/15 04:56 Order name: O2 Sat Monitoring; Complete Time: 05:14 em 07/15 04:56 Order name: Head Brain Wo Cont CT em 07/15 06:04 Order name: CBC Smear Scan; Complete Time: 06:39 EDMS 07/15 07:14 Order name: RAD; Complete Time: 07:15 EDMS 07/15 07:15 Order name: MRI - Brain Wo Cont jr8 Administered Medications: No medications were administered Disposition Summary: 07/15/21 08:32 Discharge Ordered Location: Home jr8 Problem: new jr8 Symptoms: have improved jr8 Condition: Stable jr8 Diagnosis - Transient cerebral ischemic attack, unspecified jr8 Followup: jr8 - With: Radu Reyna MD - When: 2 - 3 days - Reason: Recheck today's complaints, Continuance of care, Re-evaluation by your physician Discharge Instructions: - Discharge Summary Sheet jr8 - Transient Ischemic Attack jr8 Forms: - Medication Reconciliation Form jr8 - Thank You Letter jr8 - Antibiotic Education jr8 - Prescription Opioid Use jr8 Prescriptions: - Plavix 75 mg Oral Tablet - take 1 tablet by ORAL route once daily; 30 tablet; Refills: 0, Product jr8 Selection Permitted NIH Stroke Scale - NIH Stroke Score Date: 07/15/2021 Time: 04:47 Total Score = 0 1a. Level of Consciousness (LOC) - 0(Alert) 1b. Level of Consciousness (LOC) (Month \T\ Age) - 0(Both) 1c. LOC Commands (Open \T\ Closes Eyes/Tool Room Lathe Operator) - 0(Both) 2. Best Gaze (Lateral Gaze Paresis) - 0(Normal) 3. Visual Field Loss - 0(No visual loss) 4. Facial Palsy - 0(Normal) 5a. Left Arm: Motor (10-second hold) - 0(No drift) 5b. Right Arm: Motor (10-second hold) - 0(No drift) 6a. Left Leg: Motor (5-second hold - always test supine) - 0(No drift) 6b. Right Leg: Motor (5-second hold - always test supine) - 0(No drift) 7. Limb Ataxia (finger/nose \T\ heel/soler - test with eyes open) - 0(Absent) 8. Sensory Loss (pinprick arms/legs/face) - 0(Normal) 9. Best Language: Aphasia (description/naming/reading) - 0(No aphasia) 10. Dysarthria (speech clarity - read or repeat words) - 0(Normal) 11. Extinction and Inattention (visual/tactile/auditory/spatial/personal) - 0(No abnormality) Initials: nathaniel NIH Stroke Scale - NIH Stroke Score Date: 07/15/2021 Time: 08:29 Total Score = 0 1a. Level of Consciousness (LOC) - 0(Alert) 1b. Level of Consciousness (LOC) (Month \T\ Age) - 0(Both) 1c. LOC Commands (Open \T\ Closes Eyes/Tool Room Lathe Operator) - 0(Both) 2. Best Gaze (Lateral Gaze Paresis) - 0(Normal) 3. Visual Field Loss - 0(No visual loss) 4. Facial Palsy - 0(Normal) 5a. Left Arm: Motor (10-second hold) - 0(No drift) 5b. Right Arm: Motor (10-second hold) - 0(No drift) 6a. Left Leg: Motor (5-second hold - always test supine) - 0(No drift) 6b. Right Leg: Motor (5-second hold - always test supine) - 0(No drift) 7. Limb Ataxia (finger/nose \T\ heel/soler - test with eyes open) - 0(Absent) 8. Sensory Loss (pinprick arms/legs/face) - 0(Normal) 9. Best Language: Aphasia (description/naming/reading) - 0(No aphasia) 10. Dysarthria (speech clarity - read or repeat words) - 0(Normal) 11. Extinction and Inattention (visual/tactile/auditory/spatial/personal) - 0(No abnormality) Initials: jr8 Addendum: 07/16/2021 19:06 Co-signature as Attending Physician, Escobar Salgado MD. [email or web address] Signatures: Dispatcher [employer] Dalton Colby, RN RN Sebastien Nash PA PA jrEscobar Ferguson MD MD [email or web address]
--- NOTE | 2021-07-15 08:33 | ER ---
Nurse's Notes [facility] Name: Herminio Crowley Age: 70 yrs Sex: Male : 1950 Arrival Date: 07/15/2021 Time: 04:19 Bed 14 Private MD: Diagnosis: Transient cerebral ischemic attack, unspecified Presentation: 07/15 04:47 Chief complaint: Patient states: Reports he was seen last week for dehydration and left em hand tingling reports since the last time he was seen he has numbness and tingling periodically to the left side of his body. Pt reports it comes and goes. Coronavirus screen: At this time, the client does not indicate any symptoms associated with coronavirus-19. Ebola Screen: No symptoms or risks identified at this time. Initial Sepsis Screen: Does the patient meet any 2 criteria? No. Patient's initial sepsis screen is negative. Does the patient have a suspected source of infection? No. Patient's initial sepsis screen is negative. Risk Assessment: Do you want to hurt yourself or someone else? Patient reports no desire to harm self or others. Onset of symptoms was July 15, 2021. 04:47 Method Of Arrival: Ambulatory em 04:47 Acuity: VIANNEY 3 em Triage Assessment: 05:00 General: Appears in no apparent distress. Behavior is calm, cooperative, appropriate ea for age. Pain: Denies pain. Neuro: Level of Consciousness is awake, alert, obeys commands, Oriented to person, place, time. Respiratory: Airway is patent Respiratory effort is even, unlabored, Respiratory pattern is regular, symmetrical. Derm: Skin is pink, warm \T\ dry. Historical: - Home Meds: 04:53 Tegretol Oral [Active]; em - PMHx: 04:53 Seizure; em - PSHx: 04:53 left shoulder; em - Immunization history:: Adult Immunizations up to date. - Social history:: Smoking status: Patient denies any tobacco usage or history of. Screenin:47 Abuse screen: Denies threats or abuse. Nutritional screening: No deficits noted. em Tuberculosis screening: No symptoms or risk factors identified. Fall Risk None identified. Assessment: 07:00 Reassessment: No changes from previously documented assessment. Patient and/or family ll1 updated on plan of care and expected duration. Pain level reassessed. Patient is alert, oriented x 3, equal unlabored respirations, skin warm/dry/pink. Vital Signs: 04:47 BP 189 / 84; Pulse 70; Resp 18; Temp 97.8; Pulse Ox 99% ; Weight 71.67 kg; Height 6 ft. em (182.88 cm); 08:50 BP 185 / 94; Pulse 50; Resp 16; Pulse Ox 99% ; Pain 0/10; ll1 04:47 Body Mass Index 21.43 (71.67 kg, 182.88 cm) em NIH Stroke Scale Scores: 04:47 NIHSS Score: 0 ea 08:29 NIHSS Score: 0 jr8 ED Course: 04:19 Patient arrived in ED. bp1 04:52 Triage completed. em 04:52 Arm band placed on left wrist. em 05:14 Inserted saline lock: 20 gauge in left antecubital area, using aseptic technique. Blood ea collected. 06:36 Sebastien Morales PA is PHCP. jr8 06:36 Escobar Salgado MD is Attending Physician. jr8 07:00 Patient has correct armband on for positive identification. Bed in low position. Call ll1 light in reach. Side rails up X 1. Cardiac monitoring not applicable on this patient. 07:13 Javier Alvarez, RN is Primary Nurse. ll1 07:40 Head Brain Wo Cont CT In Process Unspecified. EDMS 07:52 MRI - Brain Wo Cont In Process Unspecified. EDMS 07:56 MRI - Brain Wo Cont In Process Unspecified. EDMS 08:32 Radu Reyna MD is Referral Physician. jr8 08:50 No provider procedures requiring assistance completed. IV discontinued, intact, ll1 bleeding controlled, No redness/swelling at site. Pressure dressing applied. Administered Medications: No medications were administered Outcome: 08:32 Discharge ordered by . jr8 08:50 Discharged to home ambulatory. ll1 08:50 Condition: stable 08:50 Discharge instructions given to patient, Instructed on discharge instructions, follow up and referral plans. medication usage, Demonstrated understanding of instructions, follow-up care, medications, Prescriptions given X 1. 08:51 Patient left the ED. ll1 NIH Stroke Scale - NIH Stroke Score Date: 07/15/2021 Time: 04:47 Total Score = 0 1a. Level of Consciousness (LOC) - 0(Alert) 1b. Level of Consciousness (LOC) (Month \T\ Age) - 0(Both) 1c. LOC Commands (Open \T\ Closes Eyes/Tree Pruner) - 0(Both) 2. Best Gaze (Lateral Gaze Paresis) - 0(Normal) 3. Visual Field Loss - 0(No visual loss) 4. Facial Palsy - 0(Normal) 5a. Left Arm: Motor (10-second hold) - 0(No drift) 5b. Right Arm: Motor (10-second hold) - 0(No drift) 6a. Left Leg: Motor (5-second hold - always test supine) - 0(No drift) 6b. Right Leg: Motor (5-second hold - always test supine) - 0(No drift) 7. Limb Ataxia (finger/nose \T\ heel/soler - test with eyes open) - 0(Absent) 8. Sensory Loss (pinprick arms/legs/face) - 0(Normal) 9. Best Language: Aphasia (description/naming/reading) - 0(No aphasia) 10. Dysarthria (speech clarity - read or repeat words) - 0(Normal) 11. Extinction and Inattention (visual/tactile/auditory/spatial/personal) - 0(No abnormality) Initials: NIH Stroke Scale - NIH Stroke Score Date: 07/15/2021 Time: 08:29 Total Score = 0 1a. Level of Consciousness (LOC) - 0(Alert) 1b. Level of Consciousness (LOC) (Month \T\ Age) - 0(Both) 1c. LOC Commands (Open \T\ Closes Eyes/Tree Pruner) - 0(Both) 2. Best Gaze (Lateral Gaze Paresis) - 0(Normal) 3. Visual Field Loss - 0(No visual loss) 4. Facial Palsy - 0(Normal) 5a. Left Arm: Motor (10-second hold) - 0(No drift) 5b. Right Arm: Motor (10-second hold) - 0(No drift) 6a. Left Leg: Motor (5-second hold - always test supine) - 0(No drift) 6b. Right Leg: Motor (5-second hold - always test supine) - 0(No drift) 7. Limb Ataxia (finger/nose \T\ heel/soelr - test with eyes open) - 0(Absent) 8. Sensory Loss (pinprick arms/legs/face) - 0(Normal) 9. Best Language: Aphasia (description/naming/reading) - 0(No aphasia) 10. Dysarthria (speech clarity - read or repeat words) - 0(Normal) 11. Extinction and Inattention (visual/tactile/auditory/spatial/personal) - 0(No abnormality) Initials: jorge Signatures: Dispatcher [employer] Dalton Colby RN RN Sebastien Nash PA PA jr8 Kelly Duggan RN RN ea Lewis, Lynsay, RN RN [facility] Kirsty Amaya [facility] Corrections: (The following items were deleted from the chart) 04:52 04:52 Arm band placed on right wrist. Patient placed in an exam room, on a em stretcher, on pulse oximetry, em
[2021-07-15 08:55] VITALS: TEMP 97.8; O2SAT 99
[2021-07-15 08:56] VITALS: BP 185/94
--- NOTE | 2021-07-15 22:39 | RAD REPORT ---
EXAM DESCRIPTION: CT - Head Brain Wo Cont - 07/15/2021 6:21 am CLINICAL HISTORY: WEAKNESS COMPARISON: 07/07/2021 TECHNIQUE: Axial CT of the head obtained from the skull apex to the skull base without contrast. Thi s exam was performed according to our departmental dose-optimization program, which includes automate d exposure control, adjustment of the mA and/or kV according to patient size and/or use of iterative reconstruction technique. FINDINGS: No acute intracranial hemorrhage identified. No mass, mass effect, shift of the midline, a bnormal extra-axial fluid collection or CT evidence of acute ischemic change identified. The ventricu lar system and sulcal spaces are mildly enlarged compatible with mild cerebral atrophy. Scattered a reas of hypodensity throughout the supratentorial white matter are nonspecific and may be related to chronic small vessel ischemic change. The visualized paranasal sinuses and mastoid air cells are well aerated. No skull fracture identifi ed. Visualized orbits and globes are unremarkable. Atherosclerotic calcification of the intracranial internal carotid arteries. IMPRESSION: 1. No acute intracranial abnormality by CT criteria. Electronically signed by: Jose Villeda 07/15/2021 5:27 AM CDT Due to temporary technical issues with the PACS/Fluency reporting system, reports are being signed by the in house radiologist without review as a courtesy to ensure prompt reporting. The interpreting r adiologist is fully responsible for the content of the report.
== END 2021-07-15 08:51 | disposition home or self-care (01) ==
LOC: ER 04:17
DX: G45.9 Transient cerebral ischemic attack, unspecified (principal); G40.909 Epilepsy, unspecified, not intractable, without status epilepticus
CPT/HCPCS: 36415; 70450; 70551; 71045; 80048; 80076; 83735; 83880; 84484; 85025; 85610; 93005; 99284